=== PATIENT | male | born 1980 | race Caucasian/White ===

== ENCOUNTER 2017-07-13 13:34 | Emergency (ER) | payer OTHER ==
[2017-07-13] MEDS: CARBAMIDE PEROXIDE 6.5% 15ML OTIC BOTH EARS (15:43)
== END 2017-07-13 15:57 | disposition home or self-care (01) ==
LOC: FTE 13:34
DX: H61.23 Impacted cerumen, bilateral (principal)
CPT/HCPCS: 69209; 99283-25

== ENCOUNTER 2018-10-13 20:35 | Emergency (ER) | payer OTHER ==
[2018-10-13] MEDS: ACETAMINOPHEN 325 MG TAB PO (21:36)
== END 2018-10-13 22:55 | disposition home or self-care (01) ==
LOC: FTE 20:35
DX: H61.21 Impacted cerumen, right ear (principal)
CPT/HCPCS: 69209; 99283-25